=== PATIENT | male | born 1990 | race African-American/Black ===

== ENCOUNTER 2017-04-09 22:38 | Emergency (ER) | payer SELFPAY ==
[~2017-04-09] VITALS: Ht 175.3 cm; Wt 80.0 kg
[~2017-04-09 22:38] MED LIST: POLY10O RIGHT EYE
[2017-04-09 22:57] VITALS: BP 138/89; PULSE 83; RESP 16; TEMP 98.3; O2SAT 97
[2017-04-09 23:30] LABS: AUTOMATED NEUTROPHIL # 8.6 TH/MM3 (1.8-7.7); BASOPHIL % 0.3 % (0.0-2.0); EOSINOPHIL # 0.1 TH/MM3 (0-0.4); EOSINOPHIL % 0.8 % (0.0-4.0); HEMATOCRIT 46.9 % (39.0-51.0); HEMO FLAGS DIFF FINAL; LYMPH % 20.2 % (9.0-44.0); LYMPHOCYTE # 2.5 TH/MM3 (1.0-4.8); MEAN CELL VOLUME 74.3 FL (80.0-100.0); MEAN CORPUSCULAR HEMOGLOBIN 24.1 PG (27.0-34.0); MEAN CORPUSCULAR HGB CONC 32.4 % (32.0-36.0); MONO % 7.5 % (0.0-8.0); NEUT % 71.2 % (16.0-70.0); PLATELET COUNT 168 TH/MM3 (150-450); RED BLOOD COUNT 6.32 MIL/MM3 (4.50-5.90); RED CELL DISTRIBUTION WIDTH 14.5 % (11.6-17.2); WHITE BLOOD COUNT 12.1 TH/MM3 (4.0-11.0)
[2017-04-09 23:52] LABS: ANION GAP 5 MEQ/L (5-15)
[2017-04-09 23:54] LABS: ACETAMINOPHEN LESS THAN 2.0 MCG/ML (10.0-30.0); ALCOHOL LESS THAN 3 MG/DL (0-5); ALT (GPT) 19 U/L (12-78); AST (GOT) 22 U/L (15-37); BICARBONATE 27.6 MEQ/L (21.0-32.0); BLOOD UREA NITROGEN 10 MG/DL (7-18); CHLORIDE 103 MEQ/L (98-107); GLOMERULAR FILTRATION RATE 93 ML/MIN (>89); POTASSIUM 3.7 MEQ/L (3.5-5.1); SODIUM (NA) 136 MEQ/L (136-145)
[2017-04-09 23:55] LABS: ALKALINE PHOSPHATASE 62 U/L (45-117); TOTAL BILIRUBIN ADULT 1.4 MG/DL (0.2-1.0)
[2017-04-10] MEDS ORDERED: LORazepam 2 MG/ML VIAL ONE (01:14)
[2017-04-10] MEDS ORDERED: diphenhydrAMINE HCL 50 MG/ML VIAL ONE (01:14)
[2017-04-10] MEDS ORDERED: OLANZapine IM 10 MG VIAL IM ONE (01:14)
[2017-04-10 01:36] VITALS: BP 140/75; PULSE 79; RESP 23; O2SAT 100
--- NOTE | 2017-04-10 01:39 | PD ---
HPI Chief Complaint: Psychiatric Symptoms Time Seen by Provider: 01:26 Travel History International Travel<30 days: No Contact w/Intl Traveler<30days: No Traveled to known affect area: No History of Present Illness HPI 26 year old black male presents to emergency department under [place] act by PD. According to the [place] act the patient had numerous narcotics including KT over the past few days. He has been displaying unusual and aggressive behavior towards his parents. According the [place] act the patient has not slept in several days. The patient had declined voluntary evaluation therefore is placed under his [place] act. The patient here had his blood drawn and was being transferred to the psychiatric portion of the emergency department when he became acutely agitated and aggressive. The patient was placed in restraints and medicated with Zyprexa 10 mg IM, Benadryl 50 mg IM, and Ativan 2 mg IM. The patient gives limited history. There is no evidence of trauma. PFSH Past Medical History Medical History: Denies Significant Hx Diminished Hearing: No Tetanus Vaccination: Unknown Influenza Vaccination: No Past Surgical History Surgical History: No Previous Surgery Pacemaker: No Social History Alcohol Use: No Tobacco Use: Yes (< 1 PPD) Substance Use: Yes Allergies-Medications (Allergen,Severity, Reaction): Coded Allergies: No Known Allergies (Unverified Adverse Reaction, Unknown, 04/09/17) Reported Meds & Prescriptions Reported Meds & Active Scripts Active No Active Prescriptions or Reported Medications Review of Systems ROS Limitations: Uncooperative, Combative Physical Exam Narrative GENERAL: Well-nourished, well-developed patient. SKIN: Warm and dry. HEAD: Normocephalic and atraumatic. EYES: No scleral icterus. No injection or drainage. ENT: No nasal drainage noted. Mucous membranes pink. Airway patent. NECK: Supple, trachea midline. Moves head freely without obvious discomfort. CARDIOVASCULAR: Regular rate and rhythm without murmurs, gallops, or rubs. RESPIRATORY: Breath sounds equal bilaterally. No accessory muscle use. GASTROINTESTINAL: Abdomen soft, non-tender, nondistended. EXTREMITIES: No cyanosis or edema. BACK: Nontender without obvious deformity. No CVA tenderness. NEURO: Patient is alert no sensorimotor deficits. Nonfocal. Normal speech. Data Data Last Documented VS Vital Signs Date Time Temp Pulse Resp B/P (MAP) Pulse Ox O2 Delivery O2 Flow Rate FiO2 04/10/17 01:36 79 23 140/75 (96) 100 Room Air 04/09/17 22:57 98.3 Orders Orders Complete Blood Count With Diff (04/09/17 23:01) Comprehensive Metabolic Panel (04/09/17 23:01) Psych Screen (04/09/17 23:01) Drug Screen, Random Urine (04/09/17 23:01) Alcohol (Ethanol) (04/09/17 23:01) Salicylates (Aspirin) (04/09/17 23:01) Tylenol (Acetaminophen) (04/09/17 23:01) Lorazepam Inj (Ativan Inj) (04/10/17 01:14) Diphenhydramine Inj (Benadryl Inj) (04/10/17 01:14) Olanzapine Inj (Zyprexa Inj) (04/10/17 01:14) Restraints Violent (04/10/17 01:33) Labs Laboratory Tests Test 04/09/17 23:15 White Blood Count 12.1 TH/MM3 Red Blood Count 6.32 MIL/MM3 Hemoglobin 15.2 GM/DL Hematocrit 46.9 % Mean Corpuscular Volume 74.3 FL Mean Corpuscular Hemoglobin 24.1 PG Mean Corpuscular Hemoglobin Concent 32.4 % Red Cell Distribution Width 14.5 % Platelet Count 168 TH/MM3 Mean Platelet Volume 7.9 FL Neutrophils (%) (Auto) 71.2 % Lymphocytes (%) (Auto) 20.2 % Monocytes (%) (Auto) 7.5 % Eosinophils (%) (Auto) 0.8 % Basophils (%) (Auto) 0.3 % Neutrophils # (Auto) 8.6 TH/MM3 Lymphocytes # (Auto) 2.5 TH/MM3 Monocytes # (Auto) 0.9 TH/MM3 Eosinophils # (Auto) 0.1 TH/MM3 Basophils # (Auto) 0.0 TH/MM3 CBC Comment DIFF FINAL Differential Comment Blood Urea Nitrogen 10 MG/DL Creatinine 1.15 MG/DL Random Glucose 107 MG/DL Total Protein 8.0 GM/DL Albumin 4.2 GM/DL Calcium Level 9.4 MG/DL Alkaline Phosphatase 62 U/L Aspartate Amino Transf (AST/SGOT) 22 U/L Alanine Aminotransferase (ALT/SGPT) 19 U/L Total Bilirubin 1.4 MG/DL Sodium Level 136 MEQ/L Potassium Level 3.7 MEQ/L Chloride Level 103 MEQ/L Carbon Dioxide Level 27.6 MEQ/L Anion Gap 5 MEQ/L Estimat Glomerular Filtration Rate 93 ML/MIN Salicylates Level 5.3 MG/DL Urine Opiates Screen NEG Acetaminophen Level LESS THAN 2.0 MCG/ML Urine Barbiturates Screen NEG Urine Amphetamines Screen NEG Urine Benzodiazepines Screen NEG Urine Cocaine Screen NEG Urine Cannabinoids Screen POS Ethyl Alcohol Level LESS THAN 3 MG/DL MDM Medical Decision Making Medical Screen Exam Complete: Yes Emergency Medical Condition: Yes Medical Record Reviewed: Yes Interpretation(s) CBC & BMP Diagram 04/09/17 23:15 Total Protein 8.0, Albumin 4.2, Calcium Level 9.4, Alkaline Phosphatase 62, Aspartate Amino Transf (AST/SGOT) 22, Alanine Aminotransferase (ALT/SGPT) 19, Total Bilirubin 1.4 H 04/09/17 23:15: Blood Urea Nitrogen 10, Creatinine 1.15, Random Glucose 107, Total Protein 8.0, Albumin 4.2, Calcium Level 9.4, Alkaline Phosphatase 62, Aspartate Amino Transf (AST/SGOT) 22, Alanine Aminotransferase (ALT/SGPT) 19, Total Bilirubin 1.4, Sodium Level 136, Potassium Level 3.7, Chloride Level 103, Carbon Dioxide Level 27.6 Differential Diagnosis MDM: High Differential diagnoses: Schizophrenia, schizoaffective disorder, bipolar, anxiety, depression, adjustment reaction, mood disorder NOS, ODD, depressive disorder NOS, dementia, dementia with agitation, psychosis NOS, substance induced mood disorder, DMDD, Asperger syndrome, infection,electrolyte abnormality, malingering. Narrative Course Mental health screening discussed with the patient. Psychiatric screen ordered. The patient became acutely agitated and aggressive. He attempted to elope. The patient was threatening to staff and bilateral restraints were ordered. The patient was placed involvement restraints. Patient's given Zyprexa 10 mg IM , Ativan 2 mg IM, Benadryl 50 g IM. This is medical clearance for psychiatric admission Diagnosis Primary Impression: Medical clearance for psychiatric admission Scripts No Active Prescriptions or Reported Meds Condition: Zak Esposito Apr 10, 2017 01:39
[2017-04-10 02:00] VITALS: BP 122/61; PULSE 82; RESP 22; O2SAT 98
[2017-04-10 04:00] VITALS: BP 134/88; PULSE 66; RESP 20; TEMP 97.9; O2SAT 100
[2017-04-10 06:00] VITALS: BP 144/81; PULSE 60; RESP 20; O2SAT 100
[2017-04-10 07:40] VITALS: BP 131/79; PULSE 56; RESP 16; O2SAT 99
--- NOTE | 2017-04-10 14:29 | PD ---
History of Present Illness Chief Complaint: Psychiatric Symptoms Time Seen by Provider: 13:45 Travel History International Travel<30 Days: No Contact w/Intl Traveler<30days: No Known affected area: No Legal Status Legal Status: [place] Act [place] Act Signed By: Angel Young History of Present Illness: History of Present Illness HPI 26 year old black male with no previous psychiatric history who presents to emergency department under [place] act by PD initiated by law enforcement. The report alleges that he had used numerous narcotics including K2 over the past few days, that he had displayed unusual and aggressiveness behavior towards his parents. In addition it alleges he had not slept in a few days. The patient became acutely agitated and aggressive in Ed. The patient was placed in restraints and medicated with Zyprexa 10 mg IM, Benadryl 50 mg IM, and Ativan 2 mg IM. Electronic medical record is reviewed. No previous contact with [facility] psychiatry Department. Current toxicology is positive for cannabinoids. Patient is seen in [facility]. He is alert, oriented, calm and cooperative. His speech is clear, logical, goal-directed. He does not demonstrate any any evidence of any psychosis, no clifford or hypomania. She denies any hallucinatory process. He is cognitively intact at this time. He denies any suicidal or homicidal ideation, intent or plan. He acknowledges that he smokes marijuana and that for the past several weeks he has been using K2. He admits to poor sleep when he is using substances. Otherwise there is no reports of changes in his sleep or eating habits. PFSH Past Medical History Medical History: Denies Significant Hx Diminished Hearing: No Tetanus Vaccination: Unknown Influenza Vaccination: No Past Surgical History Surgical History: No Previous Surgery Pacemaker: No Psychiatric History Psychiatric History Hx Psychiatric Treatment: DENIES any previous. History of Inpatient Treatment: No Guns or firearms in home: No Social History Single, employed at [employer]. Lives with his parents. Hx Alcohol Use: No Hx Tobacco Use: Yes (< 1 PPD) Hx Substance Use: Yes Substance Use Type: Marijuana, Other (K-2 ) Hx of Substance Use Treatment: No Family Psychiatric History Negative Allergies-Medications (Allergen,Severity, Reaction): Coded Allergies: No Known Allergies (Unverified Adverse Reaction, Unknown, 04/09/17) Reported Meds & Prescriptions Reported Meds & Active Scripts Active No Active Prescriptions or Reported Medications Review of Systems Except as stated in HPI: all other systems reviewed are Neg Mental Status Examination Appearance: Appropriate Consciousness: Alert Orientation: x4 Motor Activity: Normal gait Speech: Unremarkable Language: Adequate Fund of Knowledge: Adequate Attention and Concentration: Adequate Memory: Unremarkable Mood: Appropriate Affect: Appropriate Thought Process & Associations: Intact Thought Content: Appropriate Hallucination Type: None Delusion Type: None Suicidal Ideation: No Suicidal Plan: No Suicidal Intention: No Homicidal Ideation: No Homicidal Plan: No Homicidal Intention: No Insight: Fair Judgment: Adequate MDM Medical Decision Making Medical Record Reviewed: Yes Assessment/Plan 26 year old black male with no previous psychiatric history who presents to emergency department under [place] act by PD initiated by law enforcement. The report alleges that he had used numerous narcotics including K2 over the past few days, that he had displayed unusual and aggressiveness behavior towards his parents. In addition it alleges he had not slept in a few days. Patient required ETO while in ED due to aggressive behavior as well as trying to elope from the ED. He slept. This morning the patient is calm and cooperative and displays no aggressive behavior. There is no evidence of any unstable mental illness as defined under the [place]by. His reported agitation and lack of sleep are most likely related to the use of substances. There is no suicidal or homicidal ideation intent or plan. The patient is requesting to be discharged as he is concerned over losing his job. He does not meet criteria for [place] act. Psychoeducation is provided. Lift [place] act. Psychiatrically clear for discharge from ED. Orders Orders Complete Blood Count With Diff (04/09/17 23:01) Comprehensive Metabolic Panel (04/09/17 23:01) Psych Screen (04/09/17 23:01) Drug Screen, Random Urine (04/09/17 23:01) Alcohol (Ethanol) (04/09/17 23:01) Salicylates (Aspirin) (04/09/17 23:01) Tylenol (Acetaminophen) (04/09/17 23:01) Lorazepam Inj (Ativan Inj) (04/10/17 01:14) Diphenhydramine Inj (Benadryl Inj) (04/10/17 01:14) Olanzapine Inj (Zyprexa Inj) (04/10/17 01:14) Restraints Violent (04/10/17 01:33) Results Vital Signs Date Time Temp Pulse Resp B/P (MAP) Pulse Ox O2 Delivery O2 Flow Rate FiO2 04/10/17 12:00 04/10/17 07:40 56 16 131/79 (96) 99 Room Air 04/10/17 06:00 60 20 144/81 (102) 100 Room Air 04/10/17 04:00 97.9 66 20 134/88 (103) 100 Room Air 04/10/17 02:00 82 22 122/61 (81) 98 Room Air 04/10/17 01:36 79 23 140/75 (96) 100 Room Air 04/09/17 22:57 98.3 83 16 138/89 (105) 97 Laboratory Tests Test 04/09/17 23:15 White Blood Count 12.1 Red Blood Count 6.32 Hemoglobin 15.2 Hematocrit 46.9 Mean Corpuscular Volume 74.3 Mean Corpuscular Hemoglobin 24.1 Mean Corpuscular Hemoglobin Concent 32.4 Red Cell Distribution Width 14.5 Platelet Count 168 Mean Platelet Volume 7.9 Neutrophils (%) (Auto) 71.2 Lymphocytes (%) (Auto) 20.2 Monocytes (%) (Auto) 7.5 Eosinophils (%) (Auto) 0.8 Basophils (%) (Auto) 0.3 Neutrophils # (Auto) 8.6 Lymphocytes # (Auto) 2.5 Monocytes # (Auto) 0.9 Eosinophils # (Auto) 0.1 Basophils # (Auto) 0.0 CBC Comment DIFF FINAL Differential Comment Blood Urea Nitrogen 10 Creatinine 1.15 Random Glucose 107 Total Protein 8.0 Albumin 4.2 Calcium Level 9.4 Alkaline Phosphatase 62 Aspartate Amino Transf (AST/SGOT) 22 Alanine Aminotransferase (ALT/SGPT) 19 Total Bilirubin 1.4 Sodium Level 136 Potassium Level 3.7 Chloride Level 103 Carbon Dioxide Level 27.6 Anion Gap 5 Estimat Glomerular Filtration Rate 93 Salicylates Level 5.3 Urine Opiates Screen NEG Acetaminophen Level LESS THAN 2.0 Urine Barbiturates Screen NEG Urine Amphetamines Screen NEG Urine Benzodiazepines Screen NEG Urine Cocaine Screen NEG Urine Cannabinoids Screen POS Ethyl Alcohol Level LESS THAN 3 Diagnosis Primary Impression: Medical clearance for psychiatric admission Additional Impressions: Substance abuse Marijuana abuse Psychiatrically Cleared: Yes Med/ Other Pt Specific Info: No Meds Exist/No RX given Prescriptions No Active Prescriptions or Reported Meds Disposition: 01 DISCHARGE HOME Condition: Stable Problem Qualifiers Adelina Elizabeth Apr 10, 2017 14:29
--- NOTE | 2017-04-10 14:41 | PD ---
Physical Exam Date Seen by Provider: Apr 10, 2017 Time Seen by Provider: 14:39 Data Data Last Documented VS Vital Signs Date Time Temp Pulse Resp B/P (MAP) Pulse Ox O2 Delivery O2 Flow Rate FiO2 04/10/17 12:00 04/10/17 07:40 56 16 99 Room Air 04/10/17 04:00 97.9 Orders Orders Complete Blood Count With Diff (04/09/17 23:01) Comprehensive Metabolic Panel (04/09/17 23:01) Psych Screen (04/09/17 23:01) Drug Screen, Random Urine (04/09/17 23:01) Alcohol (Ethanol) (04/09/17 23:01) Salicylates (Aspirin) (04/09/17 23:01) Tylenol (Acetaminophen) (04/09/17 23:01) Lorazepam Inj (Ativan Inj) (04/10/17 01:14) Diphenhydramine Inj (Benadryl Inj) (04/10/17 01:14) Olanzapine Inj (Zyprexa Inj) (04/10/17 01:14) Restraints Violent (04/10/17 01:33) Ed Discharge Order (04/10/17 14:39) Labs Laboratory Tests Test 04/09/17 23:15 White Blood Count 12.1 TH/MM3 Red Blood Count 6.32 MIL/MM3 Hemoglobin 15.2 GM/DL Hematocrit 46.9 % Mean Corpuscular Volume 74.3 FL Mean Corpuscular Hemoglobin 24.1 PG Mean Corpuscular Hemoglobin Concent 32.4 % Red Cell Distribution Width 14.5 % Platelet Count 168 TH/MM3 Mean Platelet Volume 7.9 FL Neutrophils (%) (Auto) 71.2 % Lymphocytes (%) (Auto) 20.2 % Monocytes (%) (Auto) 7.5 % Eosinophils (%) (Auto) 0.8 % Basophils (%) (Auto) 0.3 % Neutrophils # (Auto) 8.6 TH/MM3 Lymphocytes # (Auto) 2.5 TH/MM3 Monocytes # (Auto) 0.9 TH/MM3 Eosinophils # (Auto) 0.1 TH/MM3 Basophils # (Auto) 0.0 TH/MM3 CBC Comment DIFF FINAL Differential Comment Blood Urea Nitrogen 10 MG/DL Creatinine 1.15 MG/DL Random Glucose 107 MG/DL Total Protein 8.0 GM/DL Albumin 4.2 GM/DL Calcium Level 9.4 MG/DL Alkaline Phosphatase 62 U/L Aspartate Amino Transf (AST/SGOT) 22 U/L Alanine Aminotransferase (ALT/SGPT) 19 U/L Total Bilirubin 1.4 MG/DL Sodium Level 136 MEQ/L Potassium Level 3.7 MEQ/L Chloride Level 103 MEQ/L Carbon Dioxide Level 27.6 MEQ/L Anion Gap 5 MEQ/L Estimat Glomerular Filtration Rate 93 ML/MIN Salicylates Level 5.3 MG/DL Urine Opiates Screen NEG Acetaminophen Level LESS THAN 2.0 MCG/ML Urine Barbiturates Screen NEG Urine Amphetamines Screen NEG Urine Benzodiazepines Screen NEG Urine Cocaine Screen NEG Urine Cannabinoids Screen POS Ethyl Alcohol Level LESS THAN 3 MG/DL MDM Medical Record Reviewed: Yes Supervised Visit with MOMO: No Narrative Course 26-year-old male presented to the emergency room previously and mihir overton for evaluation of usual and aggressive behavior towards parents. Patient was noted to be under the influence of multiple drugs. He denies suicidal or homicidal ideations at this time. He is calm, cooperative on exam. Seen by the psychiatric nurse practitioner and ash act was lifted. He is not felt to be a threat to himself or others at this time. Labs reviewed and vital stable. He is stable for discharge. Diagnosis Primary Impression: Medical clearance for psychiatric admission Additional Impressions: Substance abuse Marijuana abuse Scripts No Active Prescriptions or Reported Meds Disposition: 01 DISCHARGE HOME Condition: Stable Erica Maurer Apr 10, 2017 14:41
[2017-04-10 15:31] VITALS: BP 131/79; PULSE 56; RESP 16; O2SAT 99
== END 2017-04-10 16:04 | disposition home or self-care (01) ==
LOC: NEPE 22:38 → NEPJ 04-10 16:04
DX: F12.10 Cannabis abuse, uncomplicated (principal); F17.200 Nicotine dependence, unspecified, uncomplicated
CPT/HCPCS: 80053; 80307; 85025; 96372; 99285; J1200; J2060

== ENCOUNTER 2017-07-27 19:20 | Emergency (ER) | payer SELFPAY ==
[~2017-07-27] VITALS: Ht 167.6 cm; Wt 95.0 kg
[2017-07-27 19:52] VITALS: BP 130/59; PULSE 95; RESP 16; TEMP 99.9; O2SAT 100
== END 2017-07-27 21:35 | disposition left against medical advice (07) ==
LOC: NEPD 19:20
DX: R39.9 Unspecified symptoms and signs involving the genitourinary system (principal)
CPT/HCPCS: 99281

== ENCOUNTER 2017-08-11 08:55 | Emergency (ER) | payer SELFPAY ==
[~2017-08-11] VITALS: Ht 170.2 cm; Wt 100.0 kg
[2017-08-11] MEDS ORDERED: IOHEXOL 350 MG/ML 10 ML VIAL (for RAD DIAG) IVCONTRAST ONE (08:56)
[2017-08-11 08:58] VITALS: BP 134/86; PULSE 65; RESP 17; TEMP 97.5; O2SAT 98
[2017-08-11] MEDS ORDERED: SODIUM CHLOR 0.9% 1000 ML INJ 1,000 ML IV SCH (09:14)
[2017-08-11] MEDS ORDERED: KETOROLAC TROMETHAMINE 30 MG/ML (IVP) VIAL IVP ONE (09:15)
[2017-08-11] MEDS ORDERED: SODIUM CHLORIDE 0.9% FLUSH 10 ML FLUSH IV FLUSH PRN (09:15)
[2017-08-11] MEDS ORDERED: ONDANSETRON HCL 4 MG/2 ML VIAL IVP ONE (09:15)
--- NOTE | 2017-08-11 09:17 | PD ---
HPI Chief Complaint: Chest Pain Time Seen by Provider: 09:06 Travel History International Travel<30 days: No Contact w/Intl Traveler<30days: No Traveled to known affect area: No History of Present Illness HPI 26-year-old male presents to the emergency department with complaint of left upper abdominal/left lower chest pain accompanied by vomiting since last night. Denies fevers. Denies dysuria. Denies hematemesis. Reports being constipated, but had a bowel movement last night. Says his stool is hard. Reports daily alcohol use for the past 8 years. Says he drinks at least 3 beers daily. Tried taking [id number] medication for his stomach without symptom relief. Rates pain 10/10. Describes it as stabbing. No primary care provider. No known allergies. Denies significant past medical history. Has no other medical complaints. No other modifying factors or associated signs and symptoms. PFSH Past Medical History Diminished Hearing: No Past Surgical History Appendectomy: Yes Pacemaker: No Social History Alcohol Use: Yes (daily) Tobacco Use: Yes (< 1 PPD) Substance Use: Yes (marijaunia daily) Allergies-Medications (Allergen,Severity, Reaction): Coded Allergies: No Known Allergies (Unverified Adverse Reaction, Unknown, 07/27/17) Reported Meds & Prescriptions Reported Meds & Active Scripts Active Zofran Odt (Ondansetron Odt) 4 Mg Tab 4 Mg SL Q8HR PRN Review of Systems Except as stated in HPI: all other systems reviewed are Neg Physical Exam Narrative GENERAL: Well-nourished, well-developed black male patient, in no acute distress ; afebrile; diaphoretic and appears in pain SKIN: Warm and dry. HEAD: Atraumatic. Normocephalic. EYES: Pupils equal and round. No scleral icterus. No injection or drainage. ENT: Mucosa pink and moist. Airway patent. NECK: Trachea midline. CARDIOVASCULAR: Regular rate and rhythm. No murmur appreciated. RESPIRATORY: No accessory muscle use. Clear to auscultation. Breath sounds equal bilaterally. GASTROINTESTINAL: Abdomen soft, tenderness on palpation to left upper quadrant and tender all over, nondistended. Hepatic and splenic margins not palpable. Bowel sounds are active 4 quadrants. Nonrigid. No rebound tenderness. No guarding. MUSCULOSKELETAL: No obvious deformities. No clubbing. No cyanosis. No edema. NEUROLOGICAL: Awake and alert. Oriented 3. No obvious cranial nerve deficits. Motor grossly within normal limits. Normal speech. PSYCHIATRIC: Appropriate mood and affect; insight and judgment normal. Data Data Last Documented VS Vital Signs Date Time Temp Pulse Resp B/P (MAP) Pulse Ox O2 Delivery O2 Flow Rate FiO2 08/11/17 12:11 125/69 (87) 08/11/17 12:01 97 08/11/17 09:22 65 08/11/17 08:58 97.5 17 Orders Orders Electrocardiogram (08/11/17 09:07) Chest, Single Ap (08/11/17 09:07) Complete Blood Count With Diff (08/11/17 09:14) Comprehensive Metabolic Panel (08/11/17 09:14) Lipase (08/11/17 09:14) Prothrombin Time / Inr (Pt) (08/11/17 09:14) Act Partial Throm Time (Ptt) (08/11/17 09:14) Urinalysis - C+S If Indicated (08/11/17 09:14) Ct Abd/Pel W Iv Contrast(Rout) (08/11/17 09:14) Iv Access Insert/Monitor (08/11/17 09:14) Ecg Monitoring (08/11/17 09:14) Oximetry (08/11/17 09:14) Ondansetron Inj (Zofran Inj) (08/11/17 09:15) Sodium Chlor 0.9% 1000 Ml Inj (Ns 1000 M (08/11/17 09:14) Sodium Chloride 0.9% Flush (Ns Flush) (08/11/17 09:15) Ketorolac Inj (Toradol Inj) (08/11/17 09:15) Iohexol 350 Inj (Omnipaque 350 Inj) (08/11/17 08:56) Ed Discharge Order (08/11/17 11:58) Labs Laboratory Tests Test 08/11/17 09:20 White Blood Count 15.5 TH/MM3 Red Blood Count 6.18 MIL/MM3 Hemoglobin 14.6 GM/DL Hematocrit 46.0 % Mean Corpuscular Volume 74.4 FL Mean Corpuscular Hemoglobin 23.6 PG Mean Corpuscular Hemoglobin Concent 31.8 % Red Cell Distribution Width 14.5 % Platelet Count 210 TH/MM3 Mean Platelet Volume 7.7 FL Neutrophils (%) (Auto) 84.6 % Lymphocytes (%) (Auto) 11.6 % Monocytes (%) (Auto) 3.3 % Eosinophils (%) (Auto) 0.2 % Basophils (%) (Auto) 0.3 % Neutrophils # (Auto) 13.1 TH/MM3 Lymphocytes # (Auto) 1.8 TH/MM3 Monocytes # (Auto) 0.5 TH/MM3 Eosinophils # (Auto) 0.0 TH/MM3 Basophils # (Auto) 0.0 TH/MM3 CBC Comment DIFF FINAL Differential Comment Prothrombin Time 10.3 SEC Prothromb Time International Ratio 1.0 RATIO Activated Partial Thromboplast Time 27.6 SEC Blood Urea Nitrogen 8 MG/DL Creatinine 0.98 MG/DL Random Glucose 108 MG/DL Total Protein 7.5 GM/DL Albumin 3.9 GM/DL Calcium Level 8.7 MG/DL Alkaline Phosphatase 53 U/L Aspartate Amino Transf (AST/SGOT) 14 U/L Alanine Aminotransferase (ALT/SGPT) 20 U/L Total Bilirubin 0.5 MG/DL Sodium Level 140 MEQ/L Potassium Level 4.1 MEQ/L Chloride Level 108 MEQ/L Carbon Dioxide Level 29.2 MEQ/L Anion Gap 3 MEQ/L Estimat Glomerular Filtration Rate 112 ML/MIN Lipase 97 U/L MDM Medical Decision Making Medical Screen Exam Complete: Yes Emergency Medical Condition: Yes Medical Record Reviewed: Yes Differential Diagnosis Pancreatitis, gastritis, gastroenteritis, appendicitis, Narrative Course 26-year-old male with left upper quadrant abdominal pain and he is tender all over on abdominal exam. He is holding his left lower chest/upper abdominal area in relation to his pain. He reports alcohol use daily for the past 8 years. He has also been vomiting. I am suspecting this is more related to possible pancreatitis. I discussed the patient with my attending physician, Dr. Fernandez, and he agrees with my plan of care. EKG, chest x-ray, CBC, CMP, lipase, urinalysis, CT abdomen/pelvis, IV, IV fluids, Toradol, Zofran ordered. 0928: EKG was normal sinus rhythm with arrhythmia; without ST elevation or depression; reviewed by Dr. Fernandez. 0933: WBC 15.5. 1011: CMP unremarkable. Lipase 97. Coags unremarkable. Chest x-ray with no acute disease. Patient is asking for something to eat and drink. CT abdomen/ pelvis pending. 1121: CT abdomen/pelvis concludes: Abdomen/Pelvis CT 08/11/1714 Signed Impressions: Service Date/Time: Friday, August 11, 2017 10:21 - CONCLUSION: 1. No evidence of visceral abnormality. 2. Unremarkable appearing bowel gas pattern. The study was performed without oral contrast limiting the sensitivity. Chad Rojas MD Chest X-Ray 08/11/17906 Signed Impressions: Service Date/Time: Friday, August 11, 2017 09:35 - CONCLUSION: No acute disease. Chad Rojas MD CT results were discussed with the patient. Patient was sleeping comfortably in the bed when I woke him up to discuss findings. The patient previously also had some water to drink without continued nausea or vomiting. Other findings were discussed with my attending physician, Dr. Fernandez and he agrees with discharge. Zofran prescribed for home. Instructed patient to follow up with primary care provider. Patient verbalizes understanding and agreement with treatment plan. Patient is medically cleared and stable for discharge. Discussed reasons to return to the emergency department. Patient agrees with treatment plan. The patients vital signs are stable and the patient is stable for outpatient follow-up and treatment. Patient discharged home, stable and in no acute distress. Diagnosis Primary Impression: Gastritis Qualified Codes: K29.70 - Gastritis, unspecified, without bleeding Referrals: Primary Care Physician Patient Instructions: Gastritis (ED), General Instructions Additional Instructions: Take Zofran as prescribed for nausea/vomiting Increase fluid intake, starting with clear fluids; advancing to a bland diet as tolerated [place] diet to include crackers, rice, toast, bananas as tolerated, advancing slowly to regular diet Follow-up primary care provider in next 1-2 days Return to emergency department immediately, particularly if develop bloody or black stool, can't keep fluids down, develops disorientation or confusion Med/Other Pt SpecificInfo: Prescription(s) given Scripts Ondansetron Odt (Zofran Odt) 4 Mg Tab 4 MG SL Q8HR Y for Nausea/Vomiting, #6 TAB 0 Refills Prov: Brittany Gary 08/11/17 Disposition: 01 DISCHARGE HOME Condition: Stable Brittany Gary Aug 11, 2017 09:17
[2017-08-11 09:22] VITALS: PULSE 65; O2SAT 98
[2017-08-11 09:31] LABS: AUTOMATED NEUTROPHIL # 13.1 TH/MM3 (1.8-7.7); BASOPHIL % 0.3 % (0.0-2.0); EOSINOPHIL % 0.2 % (0.0-4.0); HEMOGLOBIN 14.6 GM/DL (13.0-17.0); LYMPH % 11.6 % (9.0-44.0); LYMPHOCYTE # 1.8 TH/MM3 (1.0-4.8); MEAN CELL VOLUME 74.4 FL (80.0-100.0); MEAN CORPUSCULAR HEMOGLOBIN 23.6 PG (27.0-34.0); MEAN CORPUSCULAR HGB CONC 31.8 % (32.0-36.0); MEAN PLATELET VOLUME 7.7 FL (7.0-11.0); MONO % 3.3 % (0.0-8.0); MONOCYTE # 0.5 TH/MM3 (0-0.9); NEUT % 84.6 % (16.0-70.0); PLATELET COUNT 210 TH/MM3 (150-450); RED BLOOD COUNT 6.18 MIL/MM3 (4.50-5.90); RED CELL DISTRIBUTION WIDTH 14.5 % (11.6-17.2); WHITE BLOOD COUNT 15.5 TH/MM3 (4.0-11.0)
[2017-08-11 09:41] LABS: PROTHROMBIN TIME - PATIENT 10.3 SEC (9.8-11.6)
[2017-08-11 10:02] LABS: ALBUMIN 3.9 GM/DL (3.4-5.0); AST (GOT) 14 U/L (15-37); BICARBONATE 29.2 MEQ/L (21.0-32.0); BLOOD UREA NITROGEN 8 MG/DL (7-18); CALCIUM 8.7 MG/DL (8.5-10.1); CHLORIDE 108 MEQ/L (98-107); CREATININE 0.98 MG/DL (0.60-1.30); GLOMERULAR FILTRATION RATE 112 ML/MIN (>89); GLUCOSE,RANDOM 108 MG/DL (74-106); SODIUM (NA) 140 MEQ/L (136-145)
--- NOTE | 2017-08-11 10:02 | RADRPT ---
EXAM DATE/TIME: 08/11/2017 09:35 [facility] COMPARISON: No previous studies available for comparison. INDICATIONS : Chest Pain MEDICAL HISTORY : None. SURGICAL HISTORY : None. ENCOUNTER: Initial ACUITY: 1 day PAIN SCORE: 5/10 LOCATION: chest FINDINGS: A single view of the chest demonstrates the lungs to be symmetrically aerated without evidence of mas s, infiltrate or effusion. The cardiomediastinal contours are unremarkable. Osseous structures are intact. CONCLUSION: No acute disease. Chad Rojas MD on August 11, 2017 at 9:59 Board Certified Radiologist. This report was verified electronically.
[2017-08-11 10:03] LABS: ALT (GPT) 20 U/L (12-78)
[2017-08-11 10:06] LABS: ALKALINE PHOSPHATASE 53 U/L (45-117); TOTAL BILIRUBIN ADULT 0.5 MG/DL (0.2-1.0); TOTAL PROTEIN 7.5 GM/DL (6.4-8.2)
--- NOTE | 2017-08-11 10:47 | RADRPT ---
EXAM DATE/TIME: 08/11/2017 10:21 [facility] COMPARISON: No previous studies available for comparison. INDICATIONS : Left upper quadrant pain, nausea. IV CONTRAST: 96 cc Omnipaque 350 (iohexol) IV ORAL CONTRAST: No oral contrast ingested. RADIATION DOSE: 7.37 CTDIvol (mGy) MEDICAL HISTORY : None SURGICAL HISTORY : Appendectomy. ENCOUNTER: Initial ACUITY: 1 day PAIN SCALE: 6/10 LOCATION: Left upper quadrant TECHNIQUE: Volumetric scanning of the abdomen and pelvis was performed. Using automated exposure control and ad justment of the mA and/or kV according to patient size, radiation dose was kept as low as reasonably achievable to obtain optimal diagnostic quality images. DICOM format image data is available electro nically for review and comparison. FINDINGS: LOWER LUNGS: The visualized lower lungs are clear. LIVER: Homogeneous density without lesion. There is no dilation of the biliary tree. No calcified gallston es. SPLEEN: Normal size without lesion. PANCREAS: Within normal limits. KIDNEYS: Normal in size and shape. There is no mass, stone or hydronephrosis. ADRENAL GLANDS: Within normal limits. VASCULAR: There is no aortic aneurysm. BOWEL/MESENTERY: No oral contrast was given limiting the sensitivity of the exam. The stomach, small bowel, and colon demonstrate no acute abnormality. There is no free intraperitoneal air or fluid. ABDOMINAL WALL: Within normal limits. RETROPERITONEUM: There is no lymphadenopathy. BLADDER: No wall thickening or mass. REPRODUCTIVE: Within normal limits. INGUINAL: There is no lymphadenopathy or hernia. MUSCULOSKELETAL: Within normal limits for patient age. CONCLUSION: 1. No evidence of visceral abnormality. 2. Unremarkable appearing bowel gas pattern. The study was performed without oral contrast limiting t he sensitivity. Chad Rojas MD on August 11, 2017 at 10:42 Board Certified Radiologist. This report was verified electronically.
[2017-08-11] MEDS ORDERED: ZOFR4TAB3 SL (11:27)
[2017-08-11 12:01] VITALS: BP 24/68
[2017-08-11 12:11] VITALS: BP 125/69
--- NOTE | 2017-08-11 14:45 | EKG ---
Date Performed: 08/11/2017 Time Performed: 09:24:45 PTAGE: 26 years EKG: Sinus rhythm WITH SINUS ARRHYTHMIA NORMAL ECG Since PREVIOUS TRACING , no significant change noted PREVIOUS TRACIN10/03/2009 02.39 DOCTOR: Clark Krishnan Interpretating Date/Time 08/11/2017 14:43:46
== END 2017-08-11 12:12 | disposition home or self-care (01) ==
LOC: NEPD 08:55
DX: K29.70 Gastritis, unspecified, without bleeding (principal); F17.200 Nicotine dependence, unspecified, uncomplicated; F12.90 Cannabis use, unspecified, uncomplicated
CPT/HCPCS: 71045; 74177; 80053; 83690; 85025; 85610; 85730; 93005; 96361; 96374; 96375; 99285; J1885; J2405; J7030; Q9967

== ENCOUNTER 2017-08-13 22:53 | Emergency (ER) | payer SELFPAY ==
[~2017-08-13] VITALS: Ht 167.6 cm; Wt 87.9 kg
[~2017-08-13 22:53] MED LIST changes: -POLY10O RIGHT EYE; +ZOFR4TAB3 SL
[2017-08-13 23:04] VITALS: BP 156/93; PULSE 70; RESP 18; TEMP 98; O2SAT 100
--- NOTE | 2017-08-13 23:53 | PD ---
HPI Chief Complaint: Skin Problem Time Seen by Provider: 23:49 Travel History International Travel<30 days: No Contact w/Intl Traveler<30days: No Traveled to known affect area: No History of Present Illness HPI 26-year-old male presents to the emergency department for 1 week of scrotal pain and swelling. Patient was just seen in the emergency department 2 days ago for nausea vomiting and abdominal pain but did not mention that he had scrotal pain and swelling. CT scan performed at that time was reportedly unremarkable. Patient denies any dysuria frequency urgency. Patient had no fever chills. Patient had no injury. Patient rates pain 8/10 intensity. PFSH Past Medical History Narrative Medical Appendectomy alcohol use tobacco use substance use; nursing notes reviewed Diminished Hearing: No Past Surgical History Appendectomy: Yes Pacemaker: No Social History Alcohol Use: Yes (daily) Tobacco Use: Yes (< 1 PPD) Substance Use: Yes (marijaunia daily) Allergies-Medications (Allergen,Severity, Reaction): Coded Allergies: No Known Allergies (Unverified Adverse Reaction, Unknown, 08/14/17) Reported Meds & Prescriptions Reported Meds & Active Scripts Active No Active Prescriptions or Reported Medications Review of Systems Except as stated in HPI: all other systems reviewed are Neg Physical Exam Narrative GENERAL: SKIN: Warm and dry. HEAD: Normocephalic. EYES: No scleral icterus. No injection or drainage. NECK: Supple, trachea midline. No JVD or lymphadenopathy. CARDIOVASCULAR: Regular rate and rhythm without murmurs, gallops, or rubs. RESPIRATORY: Breath sounds equal bilaterally. No accessory muscle use. GASTROINTESTINAL: Abdomen soft, non-tender, nondistended. : Uncircumcised male bilaterally descended testicles with marked tenderness to palpation of the right testicle not high riding positive cremasteric reflex MUSCULOSKELETAL: No cyanosis, or edema. BACK: Nontender without obvious deformity. No CVA tenderness. Data Data Last Documented VS Vital Signs Date Time Temp Pulse Resp B/P (MAP) Pulse Ox O2 Delivery O2 Flow Rate FiO2 08/13/17 23:04 98.0 70 18 156/93 (114) 100 Orders Orders Urinalysis - C+S If Indicated (08/13/17 23:49) Us Testicles W Doppler (08/13/17 23:49) Sodium Chloride 0.9% Flush (Ns Flush) (08/14/17 00:00) ^ Saline Lock (08/13/17 23:49) Ketorolac Inj (Toradol Inj) (08/14/17 00:00) Ondansetron Inj (Zofran Inj) (08/14/17 00:00) Ceftriaxone Inj (Rocephin Inj) (08/14/17 02:30) Azithromycin (Zithromax) (08/14/17 02:30) Gc And Chlamydia Pcr (08/14/17 02:16) Labs Laboratory Tests Test 08/14/17 00:05 Urine Color YELLOW Urine Turbidity CLOUDY Urine pH 7.5 Urine Specific [place] 1.020 Urine Protein TRACE mg/dL Urine Glucose (UA) NEG mg/dL Urine Ketones 40 mg/dL Urine Occult Blood NEG Urine Nitrite NEG Urine Bilirubin NEG Urine Urobilinogen 2.0 MG/DL Urine Leukocyte Esterase NEG Urine Squamous Epithelial Cells 1 /hpf Urine Amorphous Sediment MOD Urine Mucus FEW /lpf Microscopic Urinalysis Comment CULT NOT INDICATED MDM Medical Decision Making Medical Screen Exam Complete: Yes Emergency Medical Condition: Yes Medical Record Reviewed: Yes Interpretation(s) ua: Cloudy culture not indicated Last Impressions Scrotum Ultrasound 08/13/17 2069 Signed Impressions: Service Date/Time: Monday, August 14, 2017 00:52 - CONCLUSION: No evidence of torsion. Findings most consistent with right epididymitis Henry Bustamante MD Vital Signs Date Time Temp Pulse Resp B/P (MAP) Pulse Ox O2 Delivery O2 Flow Rate FiO2 08/13/17 23:04 98.0 70 18 156/93 (114) 100 Differential Diagnosis Epididymitis orchitis testicular mass torsion UTI urethritis Narrative Course IV access obtained specimens collected and sent for resulting ultrasound of the testicles with Doppler ordered Ultrasound consistent with epididymitis no evidence of torsion Patient given first dose of antibiotic in the emergency department and is otherwise stable for outpatient management and follow-up with urologist as needed Diagnosis Primary Impression: Epididymitis Referrals: Urologist call for appointment Patient Instructions: General Instructions Additional Instructions: Increase fluid hydration Follow-up with your primary care provider or urologist Complete course of antibiotic as prescribed Take ibuprofen as prescribed as needed for pain associated inflammation or for fever 100.4F or greater Take acetaminophen/Tylenol as needed for fever 100.4F or greater Return the emergency department for any concerns or change in condition Med/Other Pt SpecificInfo: Prescription(s) given Scripts Ibuprofen (Ibuprofen) 800 Mg Tab 800 MG PO Q6HR Y for PAIN, #10 TAB 0 Refills Prov: Dinora Aguila MD 08/14/17 Ciprofloxacin (Cipro) 500 Mg Tab 500 MG PO BID for Infection for 7 Days, #14 TAB 0 Refills Prov: Dinora Aguila MD 08/14/17 Disposition: 01 DISCHARGE HOME Condition: Stable Dinora Aguila MD Aug 13, 2017 23:53
[2017-08-14] MEDS ORDERED: KETOROLAC TROMETHAMINE 30 MG/ML (IVP) VIAL IV PUSH ONE
[2017-08-14] MEDS ORDERED: SODIUM CHLORIDE 0.9% FLUSH 10 ML FLUSH IVF PRN
[2017-08-14] MEDS ORDERED: ONDANSETRON HCL 4 MG/2 ML VIAL IV PUSH ONE
[2017-08-14 00:25] LABS: BILIRUBIN, URINE NEG (NEG); BLOOD, URINE NEG (NEG); GLUCOSE,URINE NEG (NEG); KETONE, URINE 40 mg/dL (NEG); MUCUS URINE FEW /lpf (OCC); NITRITE,URINE NEG (NEG); PH, URINE 7.5 (5.0-8.5); SQUAMOUS EPITHELIAL CELL URINE 1 /hpf (0-5); URINE COLOR YELLOW (YELLW/STRAW); URINE LEUKOCYTE ESTERASE NEG (NEG)
[2017-08-14 00:46] LABS: AMORPHOUS SEDIMENT, URINE MOD
--- NOTE | 2017-08-14 01:26 | RADRPT ---
EXAM DATE/TIME: 08/14/2017 00:52 [facility] COMPARISON: No previous studies available for comparison. INDICATIONS : Testicular pain. MEDICAL HISTORY : Testicular pain. SURGICAL HISTORY : Appendectomy. ENCOUNTER: Initial ACUITY: 1 day PAIN SCORE: 4/10 LOCATION: Bilateral testicle. MEASUREMENTS: RIGHT TESTICLE: 4.0 x 2.9 x 2.5cm LEFT TESTICLE: 3.8 x 2.8 x 2.1cm FINDINGS: RIGHT TESTICLE: Testicle is focally unremarkable with intact color flow. The epididymis is enlarged and hypervascular . There is moderate right hydrocele. LEFT TESTICLE: Homogeneous echotexture without intra or extratesticular mass. Blood flow is symmetric and within no rmal limits. No hydrocele or varicocele. Epididymis is within normal limits. SCROTUM: Within normal limits. CONCLUSION: No evidence of torsion. Findings most consistent with right epididymitis Henry Bustamante MD on August 14, 2017 at 1:23 Board Certified Radiologist. This report was verified electronically.
[2017-08-14 02:00] VITALS: BP 137/77; PULSE 80; RESP 18; O2SAT 99
[2017-08-14] MEDS ORDERED: CIPR-9 PO (02:19)
[2017-08-14] MEDS ORDERED: IBUP1TAB7 PO (02:19)
[2017-08-14] MEDS ORDERED: LIDOCAINE HCL 1% 50 ML VIAL IM ONE (02:30)
[2017-08-14] MEDS ORDERED: cefTRIAXone 250 MG VIAL IM ONE (02:30)
[2017-08-14] MEDS ORDERED: cefTRIAXone INJ 1,000 MG in SODIUM CHLORIDE 0.9% INJ 100 ML IV ONE (02:30)
[2017-08-14] MEDS ORDERED: AZITHROMYCIN 250 MG TAB PO ONE (02:30)
[2017-08-14] MEDS ORDERED: LIDOCAINE HCL 1% 20 ML VIAL ONE (02:38)
== END 2017-08-14 03:04 | disposition home or self-care (01) ==
LOC: NEPC 22:53
DX: N45.1 Epididymitis (principal); F12.90 Cannabis use, unspecified, uncomplicated; F17.200 Nicotine dependence, unspecified, uncomplicated
CPT/HCPCS: 76870; 81001; 87491; 87591; 93975; 96372; 96374; 96375; 99284; J0696; J1885; J2405